=== PATIENT | female | born 1970 | race Two or more races ===

== ENCOUNTER 2019-04-29 19:50 | Emergency (ER) | payer OTHER ==
[~2019-04-29] VITALS: Ht 170.2 cm; Wt 62.6 kg
[2019-04-29 19:55] VITALS: BP 129/108
--- NOTE | 2019-04-29 20:08 | NUR ---
URINE COLLECTED AND SENT TO LAB
[2019-04-29] MEDS ORDERED: PHENAZOPYRIDINE HCL 200 MG TABLET PO ONE (20:30)
[2019-04-29] MEDS ORDERED: PHENAZOPYRIDINE HCL 200 MG TABLET ONE (20:32)
[2019-04-29 20:50] LABS: APPEARANCE,URINE Slightly Cloudy (CLEAR); BILIRUBIN,URINE Negative (NEGATIVE); BLOOD, URINE Large Ery/uL (NEGATIVE); COLOR,URINE Yellow (YELLOW); KETONES,URINE Negative (NEGATIVE); LEUKOCYTE ESTERASE ,URINE Small (NEGATIVE); NITRITE, URINE Positive (NEGATIVE); PH,URINE 5.5 (5.0-8.0); PROTEIN,URINE 30 mg/dl (NEGATIVE); UGLUCOSE Negative (NEGATIVE); UROBILINOGEN,URINE 0.2 EU/dL (0.2)
[2019-04-29 21:00] LABS: BACTERIA,URINE 2+ /HPF (None Seen); RBC,URINE 21-50 /HPF (0-2)
== END 2019-04-29 21:08 | disposition home or self-care (01) ==
LOC: ER 19:53
DX: N39.0 Urinary tract infection, site not specified (principal); R53.83 Other fatigue; I10 Essential (primary) hypertension
CPT/HCPCS: 81000-TC; 84703-TC; 87086-TC; 87186-TC; 87491; 87591

== ENCOUNTER 2019-05-26 04:14 | Emergency (ER) | payer OTHER ==
[~2019-05-26] VITALS: Ht 162.6 cm; Wt 63.0 kg
[2019-05-26 05:27] LABS: BASOPHILS % (AUTO) 0.6 % (0.0-2.0); EOSINOPHILS % (AUTO) 2.7 % (0.0-6.0); HEMATOCRIT 42 % (33-45); HEMOGLOBIN 13.7 g/dL (11.5-14.8); LYMPHOCYTES # (AUTO) 1.4 /CMM (0.8-4.8); LYMPHOCYTES % (AUTO) 32.5 % (20.0-44.0); MEAN CORPUSCULAR HGB CONC 33 g/dl (31.0-36.0); MEAN CORPUSCULAR VOLUME 89 fL (82-100); MONOCYTES # (AUTO) 0.4 /CMM (0.1-1.30); NEUTROPHILS # (AUTO) 2.3 /CMM (1.8-8.9); NEUTROPHILS % (AUTO) 54.2 % (43.0-81.0); PLATELET COUNT (AUTO) 200 /CMM (150-450); RED BLOOD CELL COUNT(AUTO) 4.73 MIL/uL (4.0-5.2); WHITE BLOOD COUNT (AUTO) 4.3 K/uL (4.3-11.0)
--- NOTE | 2019-05-26 05:27 | NUR ---
BIBSELF FROM HOME TO ER BED 9. AAOX4. NO RESP DISTRESS NOTED. AMBULATORY. C/O LOWER ABDOMINAL. PT REPORTS THAT PAIN STARTED @ 3AM AND GOT AWOKEN BY THE PAIN. PT REPORTS THAT SHE HAS BURNING SENSATION WHEN SHE URINATING, BLOOD IN THE URINE AND URINARY URGENCY. AWAITING MD FOR EVAL.
--- NOTE | 2019-05-26 05:35 | NUR ---
URINE COLLECTED FROM PT AND SENT TO STAT LAB
[2019-05-26 05:36] LABS: CALCIUM, SERUM 9.5 mg/dL (8.5-10.1); CREATININE 1.1 mg/dL (0.6-1.3); POTASSIUM 3.6 mmol/L (3.5-5.1)
[2019-05-26 05:42] LABS: APPEARANCE,URINE Cloudy (CLEAR); BILIRUBIN,URINE SMALL (NEGATIVE); BLOOD, URINE Large Ery/uL (NEGATIVE); COLOR,URINE Red (YELLOW); KETONES,URINE Negative (NEGATIVE); LEUKOCYTE ESTERASE ,URINE Large (NEGATIVE); NITRITE, URINE Negative (NEGATIVE); PH,URINE 5.5 (5.0-8.0); PROTEIN,URINE 100 mg/dl (NEGATIVE); UGLUCOSE Negative (NEGATIVE); UROBILINOGEN,URINE 0.2 EU/dL (0.2)
[2019-05-26 05:47] LABS: ALBUMIN 3.9 g/dL (3.4-5.0); BILIRUBIN,DIRECT 0.1 mg/dL (0.0-0.2); BILIRUBIN,TOTAL 0.5 mg/dL (0.2-1.0); TOTAL PROTEIN, SERUM 7.2 g/dL (6.4-8.2)
--- NOTE | 2019-05-26 06:14 | NUR ---
US AT BEDSIDE
[2019-05-26 06:21] LABS: BACTERIA,URINE Rare /HPF (None Seen); RBC,URINE TOO NUMEROUS TO COUN /HPF (0-2); SQUAMOUS EPITHELIAL CELL,UR Few /HPF (None Seen); WBC,URINE 21-50 /HPF (0-3)
[2019-05-26] MEDS ORDERED: ACETAMINOPHEN ES 500 MG TABLET PO ONE (06:30)
[2019-05-26] MEDS ORDERED: LEVOFLOXACIN (750 MG) 750 MG TABLET PO ONE (06:30)
[2019-05-26] MEDS ORDERED: IBUPROFEN 600 MG TABLET PO ONE ×2 (06:30→06:44)
[2019-05-26] MEDS ORDERED: LEVOFLOXACIN (750 MG) 750 MG TABLET ONE (06:44)
[2019-05-26] MEDS ORDERED: ACETAMINOPHEN ES 500 MG TABLET ONE (06:44)
--- NOTE | 2019-05-26 07:03 | NUR ---
Patient discharged to home in stable condition. Written and verbal after care instructions given. Patient verbalizes understanding of instruction. Pt ambulatory with a steady gait
[2019-05-26 07:04] VITALS: BP 118/82
== END 2019-05-26 07:08 | disposition home or self-care (01) ==
LOC: ER 04:18
DX: N39.0 Urinary tract infection, site not specified (principal)
CPT/HCPCS: 36415; 76856-TC; 80048-TC; 80076-TC; 81000-TC; 84702-TC; 84703-TC; 85025-TC; 87086-TC; 87186-TC

== ENCOUNTER 2020-01-13 17:44 | Emergency (ER) | payer OTHER ==
[~2020-01-13] VITALS: Ht 162.6 cm; Wt 63.5 kg
[2020-01-13 18:48] LABS: BASOPHILS % (AUTO) 1.3 % (0.0-2.0); EOSINOPHILS % (AUTO) 2.2 % (0.0-6.0); HEMATOCRIT 42 % (33-45); HEMOGLOBIN 13.7 g/dL (11.5-14.8); LYMPHOCYTES % (AUTO) 29.6 % (20.0-44.0); MEAN CORPUSCULAR HGB CONC 33 g/dl (31.0-36.0); MEAN CORPUSCULAR VOLUME 88 fL (82-100); MONOCYTES # (AUTO) 0.4 /CMM (0.1-1.30); MONOCYTES % (AUTO) 11.2 % (2.0-12.0); NEUTROPHILS # (AUTO) 1.9 /CMM (1.8-8.9); NEUTROPHILS % (AUTO) 55.7 % (43.0-81.0); PLATELET COUNT (AUTO) 149 /CMM (150-450); RED BLOOD CELL COUNT(AUTO) 4.82 MIL/uL (4.0-5.2); WHITE BLOOD COUNT (AUTO) 3.5 K/uL (4.3-11.0)
--- NOTE | 2020-01-13 18:55 | NUR ---
BIBS FROM HOME TO ER BED 7. AAOX4. NOT IN RESP DISTRESS, BREATHING EVEN AND UNLABORED. CAME IN FOR HEADACHE AND GEN BODY PAIN W/ WOLF TINGLING ANG RLE TINGLING. PER PT, SYMPTOMS STARTED WHEN SHE STOPPED HER PREDNISONE 2 WEEKS AGO. PT REPORTS THAT SHE TAPPERED THE STOPPING. PT VERBALIZED THAT SHE FEELS WEAK. NO NEURO DEFICIT NOTED. PT IS AMBULATORY ON STEADY GAIT. MD WAS AT THE BEDSIDE FOR EVAL. ORDERS RECEIVED NOTED AND CARRIED OUT.
[2020-01-13 18:57] LABS: CALCIUM, SERUM 9.2 mg/dL (8.5-10.1); POTASSIUM 3.8 mmol/L (3.5-5.1)
--- NOTE | 2020-01-13 19:30 | NUR ---
PT BACK FROM CT. AMBULATED ON STEADY GAIT TO THE BATHROOM.
[2020-01-13] MEDS ORDERED: IBUPROFEN 600 MG TABLET PO ONE ×2 (20:44→21:00)
[2020-01-13] MEDS ORDERED: ACETAMINOPHEN ES 500 MG TABLET ONE (20:44)
[2020-01-13] MEDS ORDERED: ASPIRIN 81 MG TAB.CHEW PO ONE (21:00)
[2020-01-13] MEDS ORDERED: ACETAMINOPHEN 325 MG TABLET PO ONE (21:00)
[2020-01-13] MEDS ORDERED: ASPIRIN EC 81 MG TABLET.DR PO ONE (21:01)
[2020-01-13] MEDS ORDERED: ASPIRIN 81 MG TAB.CHEW ONE (21:02)
--- NOTE | 2020-01-13 21:18 | NUR ---
Patient discharged to home in stable condition. Written and verbal after care instructions given. Patient verbalizes understanding of instruction.IV removed. Catheter intact and site benign. Pressure and 4x4 applied to site. No bleeding noted. Pt ambulatory with a steady gait
[2020-01-13 21:21] VITALS: BP 145/96
== END 2020-01-13 21:21 | disposition home or self-care (01) ==
LOC: ER 17:48
DX: R51 Headache (principal); M79.10 Myalgia, unspecified site; R20.2 Paresthesia of skin; D86.9 Sarcoidosis, unspecified; Z86.73 Personal history of transient ischemic attack (TIA), and cerebral infarction without residual deficits
CPT/HCPCS: 36415; 70450-TC; 71045-TC; 80048-TC; 84484-TC; 84702-TC; 85025-TC

== ENCOUNTER 2020-02-01 13:37 | Emergency (ER) | payer OTHER ==
[~2020-02-01] VITALS: Ht 162.6 cm; Wt 65.8 kg
--- NOTE | 2020-02-01 14:00 | NUR ---
R SIDED FACIAL DROOP AND SLURRING 20MINS AGO WHILE DRIVING. RESOLVED SINGLE END SEWER. PT AAOX4, VSS. RR EVEN & UNLABORED. PT SPEAKING FLUENTLY, NO FACIAL DROOP, TONGUE MIDLINE, GOOD EQUAL SETTER UP, NO ARM/LEGS DRIFTING. DENIES DORSEY, DIZZINESS, N/V, VISUAL CHANGES @ THIS TIME. PT SEEN & EVAL'D BY DR. TEE. PLACED ON COMPUTER TECHNOLOGY TRAINER, SR. WILL CONT TO MONITOR.
[2020-02-01] MEDS ORDERED: diphenhydrAMINE HCL 50 MG/ML VIAL ONE (14:22)
[2020-02-01] MEDS ORDERED: MORPHINE SULFATE INJ 2 MG/ML DISP.SYRIN ONE (14:23)
[2020-02-01] MEDS ORDERED: MORPHINE SULFATE INJ 2 MG/ML DISP.SYRIN IV ONE (14:30)
[2020-02-01 14:49] LABS: BASOPHILS % (AUTO) 1.4 % (0.0-2.0); EOSINOPHILS % (AUTO) 2.4 % (0.0-6.0); HEMATOCRIT 43 % (33-45); HEMOGLOBIN 14.1 g/dL (11.5-14.8); LYMPHOCYTES % (AUTO) 39.1 % (20.0-44.0); MEAN CORPUSCULAR HGB CONC 33 g/dl (31.0-36.0); MEAN CORPUSCULAR VOLUME 88 fL (82-100); MONOCYTES # (AUTO) 0.3 /CMM (0.1-1.30); MONOCYTES % (AUTO) 10.7 % (2.0-12.0); NEUTROPHILS # (AUTO) 1.2 /CMM (1.8-8.9); NEUTROPHILS % (AUTO) 46.4 % (43.0-81.0); PLATELET COUNT (AUTO) 159 /CMM (150-450); RED BLOOD CELL COUNT(AUTO) 4.93 MIL/uL (4.0-5.2); WHITE BLOOD COUNT (AUTO) 2.6 K/uL (4.3-11.0)
[2020-02-01] MEDS: diphenhydrAMINE HCL 50 MG/ML VIAL IV ONE ×2 (14:50→14:51)
[2020-02-01] MEDS: IV NS 0.9% 1,000 ML BAG IV ONE (14:50)
[2020-02-01 14:58] LABS: CALCIUM, SERUM 9.8 mg/dL (8.5-10.1); CREATININE 0.9 mg/dL (0.6-1.3); POTASSIUM 3.6 mmol/L (3.5-5.1)
[2020-02-01 15:10] LABS: BILIRUBIN,DIRECT 0.1 mg/dL (0.0-0.2); BILIRUBIN,TOTAL 0.3 mg/dL (0.2-1.0); TOTAL PROTEIN, SERUM 7.4 g/dL (6.4-8.2)
--- NOTE | 2020-02-01 15:59 | NUR ---
Patient discharged to home in stable condition. Written and verbal after care instructions given. Patient verbalizes understanding of instruction. IV removed. Catheter intact and site benign. Pressure and 4x4 applied to site. No bleeding noted.
[2020-02-01 16:00] VITALS: BP 142/89
[2020-02-01 17:05] LABS: BAND % (MANUAL) 4 % (0.0-5.0); EOSINOPHILS % (MANUAL) 1 % (0-4); LYMPHOCYTES % (MANUAL) 39 % (16-48); MONOCYTES % (MANUAL) 14 % (0-11.0); NEUTROPHILS % (MANUAL) 42 (42-76)
== END 2020-02-01 16:01 | disposition home or self-care (01) ==
LOC: ER 13:37
DX: G43.909 Migraine, unspecified, not intractable, without status migrainosus (principal); D86.9 Sarcoidosis, unspecified; Z86.73 Personal history of transient ischemic attack (TIA), and cerebral infarction without residual deficits
CPT/HCPCS: 36415; 80048; 80076; 85025; 85730; 96361; 96374; 96375; 99284; J1200; J2270; J7030